=== PATIENT | male | born 1955 | race Caucasian/White ===

== ENCOUNTER 2016-06-17 21:18 | Emergency (ER) | payer OTHER, MEDICARE ==
[2016-06-17 21:18] VITALS: BMI 29.2
[2016-06-17] MEDS ORDERED: MORPHINE 4 MG/ML INJECTION IV ONE ×2 (21:33→23:43)
[2016-06-17] MEDS ORDERED: Albuterol/Ipratropium Neb 3 ML NEB NEB ONE (21:33)
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
[2016-06-17 21:39] VITALS: TEMP 98
[2016-06-17 21:59] LABS: AUTOMATED BASOPHIL 0.5 % (0-2); AUTOMATED EOSINOPHIL 2.1 % (0-5); AUTOMATED LYMPH 18.6 % (17-44); AUTOMATED NEUTROPHIL 71.8 % (45-76); MPV 8.1 fL (7.4-10.4)
[2016-06-17] MEDS ORDERED: Pharmacy Review for Metformin - IV Contrast Given SCH (22:00)
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
[2016-06-17 22:15] LABS: BLOOD UREA NITROGEN 15 MG/DL (9-20); CALCULATED OSMOLALITY 270 MOs/Kg (270-290); CHLORIDE 101 mEq/L (98-107); GLUCOSE 115 MG/DL (70-99); SODIUM LEVEL 139 mEq/L (137-146); TOTAL PROTEIN 7.8 G/DL (6.3-8.2)
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
[2016-06-17] MEDS ORDERED: ALBUTEROL 6.7 GM MDI INH ONE (23:43)
[2016-06-17] MEDS ORDERED: AZITHROMYCIN 250 MG TAB PO ONE (23:44)
[2016-06-18 00:12] VITALS: BP 140/70; PULSE 60
== END 2016-06-18 00:15 | disposition home or self-care (01) ==
LOC: ED 21:18
DX: S30.1XXA Contusion of abdominal wall, initial encounter (principal); J44.9 Chronic obstructive pulmonary disease, unspecified; S20.219A Contusion of unspecified front wall of thorax, initial encounter; J18.9 Pneumonia, unspecified organism; F17.210 Nicotine dependence, cigarettes, uncomplicated; R51 Headache
CPT/HCPCS: 36415; 70450; 71260; 72125; 73590; 74177; 80053; 85025; 94640; 96374; 96375; 99284; A9698; G0237; J2270; J3490; J7620